=== PATIENT | female | born 1960 | race Caucasian/White ===

== ENCOUNTER 2025-03-11 14:14 | Outpatient (REF) | payer OTHER, SELFPAY ==
--- OUTSIDE RECORDS SUMMARY | 2025-03-11 16:48 | XMS_ITS ---
Author Name [facility] Organization Unknown Care Team Organization Name Specialty Phone Email Start Date End Da te [facility] 02/15/2022 4
[2025-03-11 18:08] LABS: Hemoglobin 11.4 g/dl (12.0-16.0); Imm Gran Abs Auto 0.01 X10*3/uL (0.00-0.03); Imm Gran Pct Auto 0.1 % (0.0-0.4); MANUAL DIFF FLAG SCAN; NRBC Abs Auto 0.000 X10*3/uL (0.0-0.012); NRBC Pct Auto 0.0 /100WBC (0.0-0.2); SCAN SMEAR FLAG 1
[2025-03-11 18:10] LABS: Hematocrit 34.5 % (37.0-47.0); Lymphocytes Absolute Auto 2.4 X10*3/uL (1.2-4.9); Mean Corpuscular HGB Conc 33.0 g/dl (31.0-35.0); Mean Corpuscular Hemoglobin 30.0 pg (27.0-33.0); Mean Corpuscular Volume 90.8 fL (80.0-98.0); PLT CLUMP 1; Red Blood Count 3.80 X10*6/uL (4.20-5.50)
[2025-03-11 18:13] LABS: PLT ABN DIST 1
[2025-03-11 18:30] LABS: Platelet Count 128 X10*3/uL (160-400); White Blood Count 7.0 X10*3/uL (4.8-10.8)
[2025-03-11 18:43] LABS: Alanine Aminotransferase 18 U/L (0-31); Albumin Level 4.6 g/dL (3.5-5.0); Alkaline Phosphatase 63 U/L (39-117); Anion Gap 14 (12-20); Aspartate Amino Transferase 42 U/L (5-31); Blood Urea Nitrogen 29 mg/dL (9-16); Calcium 9.4 mg/dL (8.4-10.2); Carbon Dioxide 26 mmol/L (22-29); Chloride 105 mmol/L (96-108); Cholesterol 187 mg/dL (<200); Estimated Glomerular Filt Rate > 60; HDL Cholesterol 54 mg/dL (>40); Potassium 3.6 mmol/L (3.3-5.1); Sodium 141 mmol/L (135-145); Total Protein 7.2 g/dL (6.5-8.0); Triglycerides 209 mg/dL (<150)
== END 2025-03-11 14:15 | disposition home or self-care (01) ==
LOC: HO.WFDLDS 14:14
PROVIDERS: PCP Internal Medicine; Visit Provider Internal Medicine
DX: I10 Essential (primary) hypertension (principal); Z13.39 Encounter for screening examination for other mental health and behavioral disorders; Z13.31 Encounter for screening for depression; E78.5 Hyperlipidemia, unspecified; Z13.0 Encounter for screening for diseases of the blood and blood-forming organs and certain disorders involving the immune mechanism; Z13.228 Encounter for screening for other metabolic disorders; R73.03 Prediabetes; D64.9 Anemia, unspecified
CPT/HCPCS: 36415; 80053; 80061; 83036; 84443; 85025; 96127; 99202

== ENCOUNTER 2025-03-11 14:14 | Outpatient (AMB) | payer OTHER, SELFPAY ==
--- NOTE | 2025-03-11 14:18 | MHC.PC.OV ---
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 by: Daughter Allergies No Known Allergies Allergy (Verified 03/11/25 14:19) Tobacco use date assessed: 03/11/25 Fall risk assessment: No Falls in past year Last assessed Fall Risk: 03/11/25 Dental Screening Dental Screen Date: 03/11/25 Did you have a dental visit in the last 12 months?: Yes Did you have a dental problem in the last 6 months where you did not have access to dental care?: No Was dental information given to patient?: Patient has dentist HPI HPI Comments History of Present Illness Details 64 year old female with a past medical history of hypertension and hyperlipidemia presenting to [facility] care CV: On amlodipine 5mg, hctz 25mg, lisinopril 40mg daily, pravastatin. Blood pressure is adequately controlled. Mammo 06/2024 Colonoscopy about 3 years ago-katja ROS CONSTITUTIONAL: Denies weight loss, fever and chills. HEENT: Denies changes in vision and hearing. RESPIRATORY: Denies SOB and cough. CV: Denies palpitations and CP GI: Denies abdominal pain, nausea, vomiting and diarrhea. : Denies dysuria and urinary frequency. MSK: Denies new myalgia and joint pain. SKIN: Denies rash and pruritus. NEUROLOGICAL: Denies headache PSYCHIATRIC: Denies recent changes in mood. PHYSICAL EXAM: GENERAL: Alert and oriented x 3. NAD EYES: EOMI. Anicteric. HENT: Moist mucous membranes. No scleral icterus. No cervical lymphadenopathy. LUNGS: Clear to auscultation bilaterally. CARDIOVASCULAR: Regular rate and rhythm. No murmur. No JVD. ABDOMEN: Soft, non-tender +bs EXTREMITIES: No edema. Non-tender. SKIN: No rashes or lesions. Warm. NEUROLOGIC: No focal neurological deficits. CN II-XII grossly intact PSYCHIATRIC: Cooperative. Appropriate mood and affect [facility] Surgical History H/O: hysterectomy Family History Brother Alcoholic Mother Colon cancer Maternal Grandmother HTN (hypertension) Other Substance abuse Social History Housing: House Alcohol intake: never Patient Tobacco Use Status: Never used Tobacco e-Cigarette/Vaping Use: Never Used Second Hand Smoke Exposure: No service: No Current occupational status: unemployed Current occupation: house Cognitive needs: No Hearing needs: No Vision needs: Yes (glasses) Questionnaire PHQ-9 Over the last 2 weeks, how often have you been bothered by any of the following problems? 1. Little interest or pleasure in doing things: not at all 2. Feeling down, depressed, or hopeless: not at all 3. Trouble falling or staying asleep, or sleeping too much: not at all 4. Feeling tired or having little energy: not at all 5. Poor appetite or overeating: not at all 6. Feeling bad about yourself - or that you are a failure or have let yourself or your family down: not at all 7. Trouble concentrating on things, such as reading the newspaper or watching television: not at all 8. Moving or speaking so slowly that other people could have noticed. Or the opposite - being so fidgety or restless that you have been moving around a lot more than usual: not at all 9. Thoughts that you would be better off or of hurting yourself in some way: not at all Total score: 0 Depression Screening Interpretation: Negative Depression Screening Done: Yes 41268 - PHQ-9 Billing: Yes Source: Developed by Drs. Santos Hope, Nancy Sotomayor, Brody Noble and colleagues, with an educational javier from [employer]. Thrive Questionnaire I am a: Patient What is your living situation today?: I have a steady place to live Within the past 12 months, did the food you bought not last and you didn't have the money to get more?: Never true Within the past 12 months, did you worry whether your food would run out before you got money to buy more?: Never true Do you have trouble paying for medicines?: No Do you have trouble getting transportation to medical appointments?: No Do you have trouble paying your heating and electricity bill?: No Do you have trouble taking care of your child, family member or friend?: No Do you have trouble with day-to-day activities such as bathing, preparing meals, shopping, managing finances, etc.?: No Are you currently unemployed and looking for a job?: No Are you interested in more education?: No Please select the resources that you would like help with: None Currently or been in a relationship where the following occur: No concerns reported THRIVE Score: 0 AUDIT C Alcohol Use Questionnaire (AUDIT-C) 1. How often do you have a drink containing alcohol?: Never 3. How often do you have six or more drinks on one occasion?: Never Total Score: 0 JANNETTE-7 AMB Questionnaire JANNETTE-7 Date JANNETTE - 7 assessed: 03/11/25 Feeling nervous, anxious, or on edge: 0 = Not at all Not being able to stop or control worryin = Not at all Worrying too much about different things: 0 = Not at all Trouble relaxin = Not at all Being so restless that it is hard to sit still: 0 = Not at all Becoming easily annoyed or irritable: 0 = Not at all Feeling afraid as if something awful might happen: 0 = Not at all Total JANNETTE-7 score (0-4 normal; 5-9 mild; 10-14 moderate; 15-21 severe): 0 Source: Developed by Drs. Santos Hope, Nancy Sotomayor, Brody Noble and colleagues, with an educational javier from [employer]. JANNETTE-7 Assessment Billing JANNETTE-7 Assessment Tool: JANNETTE-7 Assessment 30858 Physical exam (Primary Care) Vital Signs: Last Vital Signs Temp 98.4 F 03/11/25 14: Pulse 63 03/11/25 14:25 Resp 14 03/11/25 14:25 BP 110/82 03/11/25 14:25 Pulse Ox 97 03/11/25 14:25 Oxygen Delivery Method Room Air 03/11/25 14:25 BMI result Body Mass Index 31.0 Tobacco/Smoking Status: Tobacco use Status Tobacco use date assessed 03/11/25 03/11/25 14:27 Patient Tobacco Use Status Never used Tobacco 03/11/25 14:27 e-Cigarette/Vaping Use Never Used 03/11/25 14:27 PHQ-9: PHQ-9 Score PHQ-9: Total score 0 03/11/25 14:51 Depression Screening Interpretation: Negative Currently or been in a relationship where the following occur: No concerns reported Coding Level of Care Code Complex visit Add On G2211 Diagnoses Primary hypertension I10 Hypertension type: primary hypertension Hyperlipidemia, unspecified hyperlipidemia type E78.5 Hyperlipidemia type: unspecified Prediabetes R73.03 Anemia, unspecified type D64.9 Anemia type: unspecified type Additional Codes JANNETTE-7 Assessment Billing - JANNETTE-7 Assessment Tool: JANNETTE-7 Assessment 36899 ([id number]) PHQ-9 - 96817 - PHQ-9 Billing: Yes ([id number]) Assessment & Plan Assessment & Plan (1) Hypertension: Code(s): I10 - Essential (primary) hypertension Category: Medical Qualifiers: Hypertension type: primary hypertension Qualified Code(s): I10 - Essential (primary) hypertension (2) Hyperlipidemia: Code(s): E78.5 - Hyperlipidemia, unspecified Category: Medical Qualifiers: Hyperlipidemia type: unspecified Qualified Code(s): E78.5 - Hyperlipidemia, unspecified (3) Prediabetes: Code(s): R73.03 - Prediabetes Category: Medical (4) Anemia, unspecified: Code(s): D64.9 - Anemia, unspecified Category: Medical Qualifiers: Anemia type: unspecified type Qualified Code(s): D64.9 - Anemia, unspecified Plan 64 year old female presenting to [facility] care Past medical, surgical social reviewed CV-htn controlled. continue current medications. Efforts toward weight loss Labs ordered Return in six months for MWV Orders: Orders Comprehensive Met. Panel 03/11/25 E78.5 - Hyperlipidemia, unspecified, I10 - Essential (primary) hypertension, R73.03 - Prediabetes, Z13.0 - Encounter for screening for diseases of the blood and blood-forming organs and certain disorders involving the immune mechanism, Z13.228 - Encounter for screening for other metabolic disorders TSH reflex Free T4 03/11/25 E78.5 - Hyperlipidemia, unspecified, I10 - Essential (primary) hypertension, R73.03 - Prediabetes, Z13.0 - Encounter for screening for diseases of the blood and blood-forming organs and certain disorders involving the immune mechanism, Z13.228 - Encounter for screening for other metabolic disorders Complete Blood Count Auto Diff 03/11/25 E78.5 - Hyperlipidemia, unspecified, I10 - Essential (primary) hypertension, R73.03 - Prediabetes, Z13.0 - Encounter for screening for diseases of the blood and blood-forming organs and certain disorders involving the immune mechanism, Z13.228 - Encounter for screening for other metabolic disorders Hemoglobin A1c 03/11/25 E78.5 - Hyperlipidemia, unspecified, I10 - Essential (primary) hypertension, R73.03 - Prediabetes, Z13.0 - Encounter for screening for diseases of the blood and blood-forming organs and certain disorders involving the immune mechanism, Z13.228 - Encounter for screening for other metabolic disorders Lipid Panel 03/11/25 E78.5 - Hyperlipidemia, unspecified, I10 - Essential (primary) hypertension, R73.03 - Prediabetes, Z13.0 - Encounter for screening for diseases of the blood and blood-forming organs and certain disorders involving the immune mechanism, Z13.228 - Encounter for screening for other metabolic disorders
[2025-03-11 14:25] VITALS: BP 110/82; PULSE 63; RESP 14; TEMP 36.9; O2SAT 97; BMI 31.0
--- OUTSIDE RECORDS SUMMARY | 2025-03-11 16:17 | XMS_ITS | Clinical Summary ---
Author Organization [facility] [address] [place] [address] [place] [phone] Phone Care Team Providers Care Restaurant Server Name Role Phone Ros Ortiz MD Primary Care Provider [phone] Allergies No known active allergies Medications pravastatin (PRAVACHOL) 20 mg tablet Take 1 tablet by mouth once daily 90 tablet 1 10/29/2024 Active amLODIPine (NORVASC) 5 mg tablet Take 1 tablet (5 mg total) by mouth 1 (one) time each day. 90 tablet 01/28/2025 Active lisinopril (PRINIVIL,ZESTRI L) 40 mg tablet Take 1 tablet (40 mg total) by mouth 1 (one) time each day. 90 tablet 01/28/2025 Active hydroCHLOROthiaz nunu (HYDRODIURIL) 25 mg tablet Take 1 tablet (25 mg total) by mouth 1 (one) time each day. 90 tablet 01/28/2025 Active metoprolol succinate (TOPROL-XL) 100 mg 24 hr tablet Take 1 tablet (100 mg total) by mouth 1 (one) time each day. 90 tablet 01/28/2025 Active Active Problems Problem Noted Date Diagnosed Date Microalbuminuria 03/01/2024 Prediabetes 08/24/2018 Hypercholesterolemia 10/18/2012 Obesity (BMI 30.0-34.9) 06/01/2011 Hypertension 05/06/2011 Sciatica 05/06/2011 Resolved Problems Problem Noted Date Diagnosed Date Resolved Date CKD (chronic kidney disease) stage 2, GFR 60-89 ml/min 03/01/2024 07/30/2024 Immunizations Immunization Administration Dates Next Due Hepatitis B Pediatric (Enger ix B; Recombivax HB) to less than 20 yo 05/02/2002,10/16/2001,07/10/2001 MMR, measles mumps and rubel la Live (Priorix; M-M-R II) 12mo and older 07/16/2001,06/11/2001 Td Tetanus diptheria (Tdvax) 7yo and older 06/22,06/16/2001 Tdap Tetanus diptheria acell ular pertussis (Boostrix; Adacel) 7yo and older 06/15/2011 Surgical History Surgery Date Site/Laterality Comments HYSTERECTOMY 03/17/2008 for fibroids w oopherectomy COLONOSCOPY W/ POLYPECTOMY 04/10/2013 small sigmoid colon polyps x 2: tubular adenoma x 2. COLONOSCOPY 06/08/2021 SCREENING MAMMOGRAM 06/29/2024 Bilateral Medical History Medical History Date Comments Anemia Hypertension 05/06/2011 v Sciatica v: L L4-L5 and L 5-SI disc herniation Iron deficiency anemia v Migraine v Fibroid uterus v s/p hysterecto my in 2007 Microalbuminuria 03/01/2024 Prediabetes 08/24/2018 Family History Medical History Relation Name Comments Asthma Daughter Hypertension Maternal Grandmother Colon cancer Mother Hypertension Son Breast cancer Neg Hx Ovarian cancer Neg Hx Uterine cancer Neg Hx Relation Name Status Comments Daughter Alive Father (Age 34) Maternal Grandfather stomach problems - young Maternal Grandmother Mother (Age 59) Paternal Grandfather Paternal Grandmother [place] Son Alive Social History Tobacco Use Types Packs/Day Years Used Date Smoking Tobacco: Never Smokeless Tobacco: Never Tobacco Cessation:Counseling Given: Not Answered Alcohol Use Standard Drinks/Week Comments No 0 (1 standard drink = 0.6 oz pur e alcohol) Housing Instability Answer Date Recorde d Are you worried that in the next 2 months you may not have stable housing? No 02/27/2024 Food Access & Nutrition Answer Date Rec orded Do you have access to a vari ety of food including fruits and vegetables? Yes 02/27/2024 Access to Healthcare Answer Date Record ed Within the last 3 months, ho w many times did you visit the emergency department for your medical care? 0 02/27/2024 Health Literacy Answer Date Recorded How often do you need to hav e someone help you when you read instructions, pamphlets, or other written material from your doctor or pharmacy? Never 02/27/2024 Caregiver: How often do you need to have someone help you when you read instructions, pamphlets, or other written material from your doctor or pharmacy? Not on file 02/27/2024 Financial Risk Answer Date Recorded How hard is it for you to pa y for the very basics like food, housing, medical care, and air conditioning / heating? Not asked 02/27/2024 Social Isolation Answer Date Recorded How often do you feel lonely or isolated from th ose around you? Never 02/27/2024 Food Risk Answer Date Recorded Within the past 12 months we worried whether our food would run out before we got money to buy more. Not asked 02/27/2024 Within the past 12 months th e food we bought just didn't last and we didn't have money to get more. Not asked 02/27/2024 Dependent Care Answer Date Recorded Do you need help finding or paying for care for your loved ones. For example, child attendant or elderly care for an older adult? No 02/27/2024 Education Answer Date Recorded Do you think completing more education or training, like finishing a GED, going to college, or learning a trade, would be helpful for you? N/A 02/27/2024 Employment and Income Answer Date Recor ded During the last four weeks, have you been actively looking for work? No 02/27/2024 Comments No Sex and Gender Information Value Date Recorded Sex Assigned at Not on file Legal Sex Female 11:22 AM EST Gender Identity Not on file Sexual Orientation Not on file Obstetrics History Para Term AB IAB SAB Ectopic Multiple Livin g Live Births 6 6 6 6 Date Outcome GA Total Labor Labor/2nd/3rd Weight Sex Type Anes PTL Sabiha A1 A5 Name Clin Term Term Term Term Term Term Last Filed Vital Signs Vital Sign Reading Time Taken Comments Blood Pressure 120/62 08/07/2024 8:23 AM EDT Pulse 64 08/07/2024 8:23 AM EDT Temperature 35.9 C (96.6 F) 08/07/2024 8:23 AM EDT Respiratory Rate 14 08/07/2024 8:23 AM EDT Oxygen Saturation 96% 08/07/2024 8:23 AM EDT Inhaled Oxygen Concentration - - Weight 75.3 kg (166 lb 1.6 oz) 08/07/2024 8:23 A M EDT Height 157.5 cm (5' 2 ) 08/07/2024 8:23 AM EDT Body Mass Index 30.38 08/07/2024 8:23 AM EDT Plan of Treatment Health Maintenance Due Date Last Done Comments COVID-19 Vaccine (#1) 07/10/1964 Zoster Vaccines (1 of 2) 07/10/1978 Pneumococcal Vaccine: 50+ Years (1 of 1 - PCV) 07/10/2009 Osteoporosis Screening (Bone Density Screening) 03/19/2022 Falls Risk Assessment 07/10/2024 Influenza Vaccine (#1) 2024 Social Influencers of Health Screening 02/26/2025 02/27/2024 Hypertension/CHF/CAD Annual BMP Blood Test 02/27/2025 02/28/2024, 01/31/2023 Colorectal Cancer Screening: Colonoscopy 06/08/2026 06/08/2021 Breast Cancer Screening 06/29/2026 06/30/19, 06/10/2023, 02/26/2022, Additional history exists Cholesterol Screening (Lipid Panel) 02/27/2029 02/28/2024, 01/31/2023 DTaP,Tdap,and Td Vaccines (4 - Td or Tdap) 06/23/2031 06/22/2021, 06/15/2011, 06/16/2001 RSV Immunization Adult Patients (1 - 1-dose 75+ series) 07/10/2034 MMR Vaccines Aged Out 07/16/2001, 06/11/2001 No lo nger eligible based on patient's age to complete this topic Hepatitis B Vaccines Aged Out 05/02/2002, 10/16/2001, 07/10/2001 No longer eligible based on patient's age to complete this topic Hepatitis C Screening Completed 12/13/2013 Depression Screening Completed 08/01/2024 HIB Vaccines Aged Out No longer eligi ble based on patient's age to complete this topic HPV Vaccines Aged Out No longer eligi ble based on patient's age to complete this topic Hepatitis A Vaccines Aged Out No long er eligible based on patient's age to complete this topic IPV Vaccines Aged Out No longer eligi ble based on patient's age to complete this topic Meningococcal ACWY Vaccine Aged Out N o longer eligible based on patient's age to complete this topic Meningococcal B Vaccine Aged Out No l onger eligible based on patient's age to complete this topic RSV Immunization Patients Under 20 months Aged Out No longer eligible based on patient's age to complete this topic Varicella Vaccines Aged Out No longer eligible based on patient's age to complete this topic Procedures Procedure Name Priority Date/Time Associated Diagnosis Comments MG MAMMO DIGITAL SCREENING W JOSE BILAT Routine 06/29/2024 11:01 AM EDT Encounter for screening mammogram for breast cancer COMPREHENSIVE METABOLIC PANEL Routine 02/28/2024 9:30 AM EST Primary hypertension LIPID PANEL WITH REFLEX TO DIRECT LDL Routine 02/28/2024 9:30 AM EST Hypercholesterolemia HM COLONOSCOPY Routine 06/08/2021 HEPATITIS C SCREENING Routine 12/13/2013 from Last 3 Months or Most Recently Relevant to Health Maintenance Results * MG Mammo Digital Screening w Jose bilat (06/29/2024 11:01 AM EDT) Anatomical Region Laterality Modality Breast Bilateral Mammography 07/01/2024 11:4 6 AM EDT Impressions 07/01/2024 12:33 PM EDT Benign. BI-RADS CATEGORY: 1 - NEGATIVE RECOMMENDATION: Screening bilateral mammogram is recommended in 1 year. Mammo Location: [facility], [address] [place] [address], [id number], . -------- FINAL REPORT -------- Dictated By: Anette Zambrano Dictated Date: 07/01/2024 11:46 ET Assigned Physician: Anette Zambrano Reviewed and Electronically Signed By: Anette Zambrano Signed Date: 07/01/2024 12:33 ET Workstation ID: [id number] Transcribed By: Self Edit Transcribed Date: 07/01/2024 11:47 ET Narrative 07/01/2024 12:33 PM EDT CLINICAL: 63 years old, Female, routine annual exam. COMPARISON: Mammograms dating back to 02/20/2021 with most recent of 06/10/2023. TECHNIQUE: Bilateral MLO and CC views were obtained digitally with 3-D mammogram (digital breast tomosynthesis). Computer-aided detection was utilized in evaluation of this exam (CAD). FINDINGS: There is no evidence of suspicious mass or architectural distortion. No worrisome calcifications are evident. There has been no significant change from prior exam(s). BREAST DENSITY: B - There are scattered areas of fibroglandular density. Procedure Note Anette Zambrano MD - 07/01/2024 CLINICAL: 63 years old, Female, routine annual exam. COMPARISON: Mammograms dating back to 02/20/2021 with most recent of06/10/2023. TECHNIQUE: Bilateral MLO and CC views were obtained digitally with 3-Dmammogram (digital breast tomosynthesis). Computer-aided detection wasutilized in evaluation of this exam (CAD). FINDINGS: There is no evidence of suspicious mass or architectural distortion. Noworrisome calcifications are evident. There has been no significantchange from prior exam(s). BREAST DENSITY: B - There are scattered areas of fibroglandular density. IMPRESSION: Benign. BI-RADS CATEGORY: 1 - NEGATIVE RECOMMENDATION: Screening bilateral mammogram is recommended in 1 year. Mammo Location: [facility], [address] [place] [address], [id number], . -------- FINAL REPORT -------- Dictated By: Anette Zambrano Dictated Date: 07/01/2024 11:46 ET Assigned Physician: Anette Zambrano Reviewed and Electronically Signed By: Anette Zambrano Signed Date: 07/01/2024 12:33 ET Workstation ID: [id number] Transcribed By: Self Edit Transcribed Date: 07/01/2024 11:47 ET us Ros Ortiz MD IMG BI PROCEDURES Final Result * (ABNORMAL) Lipid panel with reflex to direct LDL (02/28/2024 9:30 AM EST) Cholesterol 190 0 - 200 mg/dL LAB CHEMISTRY METHOD 02/28/2024 12:48 PM [facility] Triglycerides 117 0 - 150 mg/dL LAB CHEMISTRY METHOD 02/28/2024 12:48 PM [facility] HDL 59 >=40 mg/dL LAB CHEMISTRY METHOD 02/28/2024 12:48 PM [facility] LDL Calculated 108(H) 0 - 100 mg/dL LAB CHEMISTRY METHOD 02/28/2024 12:48 PM [facility] VLDL Cholesterol Robinson 23.4 mg/dL LAB CHEMISTRY METHOD 02/28/2024 12:48 PM [facility] Non HDL Chol. (LDL+VLDL) 131 <145 mg/dL LAB CHEMISTRY METHOD 02/28/2024 12:48 PM [facility] Chol/HDL Ratio 3.2 0.0 - 4.4 LAB CHEMISTRY METHOD 02/28/2024 12:48 PM [facility] Blood Venous blood specimen / Unknown Venipuncture / Unknown 02/28/2024 9:30 AM EST 02/28/2024 9:30 AM EST us Marga PEREYRA LAB BLOOD ORDERABLES Final Re sult [facility] [address] [place] [address], * (ABNORMAL) Comprehensive metabolic panel (02/28/2024 9:30 AM EST) Sodium 142 133 - 145 mmol/L LAB CHEMISTRY METHOD 02/28/2024 12:48 PM [facility] Potassium 3.6 3.5 - 5.5 mmol/L LAB CHEMISTRY METHOD 02/28/2024 12:48 PM [facility] Chloride 107 96 - 110 mmol/L LAB CHEMISTRY METHOD 02/28/2024 12:48 PM [facility] CO2 28 21 - 32 mmol/L LAB CHEMISTRY METHOD 02/28/2024 12:48 PM [facility] Anion Gap 7 3 - 11 LAB CHEMISTRY METHOD 02/28/2024 12:48 PM [facility] Glucose 105(H) 70 - 100 mg/dL LAB CHEMISTRY METHOD 02/28/2024 12:48 PM [facility] BUN 23 5 - 25 mg/dL LAB CHEMISTRY METHOD 02/28/2024 12:48 PM [facility] Creatinine 0.96 0.50 - 1.10 mg/dL LAB CHEMISTRY METHOD 02/28/2024 12:48 PM [facility] eGFR 66 >=60 mL/min/1. 73m2 LAB CHEMISTRY METHOD 02/28/2024 12:48 PM [facility] Comment:Calculation based on the Chronic Kidney Disease Epidemiology Collaboration (CKD-EPI) equation refit without adjustment for race. BUN/Creatinine Ratio 24.0 LAB CHEMISTRY METHOD 02/28/2024 12:48 PM [facility] Calcium 9.6 8.5 - 10.5 mg/dL LAB CHEMISTRY METHOD 02/28/2024 12:48 PM [facility] AST (SGOT) 23 10 - 42 unit/L LAB CHEMISTRY METHOD 02/28/2024 12:48 PM [facility] ALT (SGPT) 23 10 - 60 unit/L LAB CHEMISTRY METHOD 02/28/2024 12:48 PM [facility] Alkaline Phosphatase 64 42 - 121 unit/L LAB CHEMISTRY METHOD 02/28/2024 12:48 PM [facility] Total Protein 7.3 6.0 - 8.0 g/dL LAB CHEMISTRY METHOD 02/28/2024 12:48 PM [facility] Albumin 4.2 3.2 - 5.0 g/dL LAB CHEMISTRY METHOD 02/28/2024 12:48 PM EST [facility] Total Bilirubin 0.6 0.0 - 1.4 mg/dL LAB CHEMISTRY METHOD 02/28/2024 12:48 PM EST [facility] Blood Venous blood specimen / Unknown Venipuncture / Unknown 02/28/2024 9:30 AM EST 02/28/2024 9:30 AM EST Marga PEREYRA LAB BLOOD ORDERABLES Final Re sult [facility]) [facility] [address] [place] [address], * Colonoscopy (06/08/2021) [facility] Colonoscopy abnormal, abstracted Anatomical Region Laterality Modality Other Historical Provider HEALTH MAINTENANCE Final Result * Hepatitis C Screening (12/13/2013) [facility] Hepatitis C Screening abstracted Historical Provider HEALTH MAINTENANCE Final Result from Last 3 Months or Most Recently Relevant to Health Maintenance Insurance [facility] Care Teams Restaurant Server Relationship Specialty Start Date End Date Ros Ortiz MD [address] [place] [phone] PCP - General Internal Medicine 03/26/21
== END 2025-03-11 14:53 | disposition home or self-care (01) ==
LOC: HO.HMCFM 14:15
PROVIDERS: PCP Internal Medicine; Visit Provider Internal Medicine
DX: I10 Essential (primary) hypertension (principal); E78.5 Hyperlipidemia, unspecified; R73.03 Prediabetes; D64.9 Anemia, unspecified